=== PATIENT | female | born 1995 | race Caucasian/White ===

== ENCOUNTER 2018-06-06 16:05 | Outpatient (CLI) | payer BC, SELFPAY ==
[2018-06-06 17:52] LABS: TSH (W/Ref FT4) 1.68 uIU/mL (0.358-3.74)
[2018-06-06 18:18] LABS: Vitamin D 25 Total 33.4 ng/ml (30-100)
[2018-06-10 11:59] LABS: Syphilis Serology (RPR) Negative (Negative)
[2018-06-10 14:10] LABS: Chlamydia Result Negative; GC Result Negative
== END 2018-06-06 16:25 ==
PROVIDERS: Visit Provider Obstetrics & Gynecology Gynecology
DX: Z00.00 Encounter for general adult medical examination without abnormal findings (principal); Z01.419 Encounter for gynecological examination (general) (routine) without abnormal findings
CPT/HCPCS: 36415; 82306; 87491; 87591; 84443; 86592

== ENCOUNTER 2019-07-22 15:13 | Outpatient (REF) | payer BC, SELFPAY ==
--- NOTE | 2019-07-22 11:30 | PAPFT_PTH ---
PATIENT: NAN STEWARD LOC: [facility] U#:[id number] AGE/SX: 23/F ROOM: RE07/22/[address]: EILEEN Leslie : 1995 BED: DIS: 07/22/2019 SPEC #: [id number] RECD: 07/22/19 17:45 STATUS: MOISE REQ #: [id number] MIKAELA: 07/22/19 11:[address]: Kelly Andrews DEPT: [facility] Cytology RECD BY: Erika Colindres ENTERED: 07/22/19 17:48 SP TYPE: PAPFT OTHR DR: None Tissues: 1 - CX/ENDOCX FOR PAP SMEARS Procedures: PAP THIN PREP/[facility] Screening Comments: [id number]
== END 2019-07-22 15:33 ==
LOC: LBN 15:13
PROVIDERS: Visit Provider Nurse Practitioner Family
DX: Z12.4 Encounter for screening for malignant neoplasm of cervix (principal)
CPT/HCPCS: 88142